=== PATIENT | male | born 1955 | race Caucasian/White ===

== ENCOUNTER 2023-02-14 15:01 | Outpatient (CLI) | payer BC, SELFPAY ==
--- NOTE | 2023-02-14 15:30 | MR_ITS ---
[address] [address] Phone:?[phone] Fax:?[phone] Referring Physician Information: Manuel Kay M.D. [id number] [facility] [address] Phone:?[phone] Fax:?[phone] Patient:Gilda Oseguera D.O.B:?1955 Sex:?Male Phone:?[phone] [facility] MRN:?[id number] Exam Date:?02/14/2023 EXAM: MRI of the LEFT KNEE, without contrast CLINICAL HISTORY: Left knee pain. Suspect lateral meniscal tear. COMPARISONS: Plain radiographs 02/04/2023. TECHNICAL: MR sequences of the left knee: sagittals: PD, PDFS coronals: PD, STIR axials: PD, T2 FS CONTRAST: None SEDATION: None FINDINGS: Bones: No fracture, bone marrow contusion, or other suspicious bone marrow signal abnormality. Patellofemoral joint: Cartilage: Intact. Retinacula: The medial and lateral retinacula are intact. Fat pads: The infrapatellar, quadriceps, and prefemoral fat pads are unremarkable. Knee joint: Effusion: Trace left knee joint effusion. Popliteal cyst: Moderately sized popliteal cyst. Intra-articular bodies: None. Posteromedial corner: The semimembranosus and pes anserine tendons are intact. Medial compartment: Medial meniscus: There is a 3.5 cm in length free edge and inferiorly surfacing oblique flap tear from the body through posterior horn of the medial meniscus with a flap of torn meniscal tissue from the body extruded into the medial gutter. There is ill-defined partial thickness radial tear of the posterior root of the medial meniscus best seen on sagittal series 6 image 14. There is 4 mm of medial meniscal extrusion best seen on coronal series 7 image 19. Cartilage: There is a 1.0 x 1.0 cm area of grade III chondromalacia over the mid weightbearing portion of the medial femoral condyle. Lateral compartment: Lateral meniscus: There is a 2.0 cm in length free edge surfacing horizontal tear from the anterior horn through body of the lateral meniscus best seen on sagittal series 6 image 25 through 23 and coronal series 8 images 15 through 19 and fraying and mucoid degeneration/ill-defined partial tearing of the posterior horn/posterior root junction of the lateral meniscus best seen on sagittal series 5 images 19 and 18. Cartilage: There is a 1.5 x 1.5 cm area of grade II chondromalacia over the central portion of the lateral tibial plateau. Ligaments: Anterior cruciate ligament: Intact. Posterior cruciate ligament: Intact. Medial collateral ligament: Intact. Posterior oblique ligament: Intact. Fibular collateral ligament: Intact. Posterolateral corner: The distal biceps femoris tendon, iliotibial band, popliteus tendon, popliteus muscle, popliteofibular ligament, and arcuate ligament are intact. Extensor mechanism: Patellar tendon: Intact. Quadriceps tendon: Intact. IMPRESSION: 1. 3.5 cm in length free edge and inferiorly surfacing oblique flap tear from the body through posterior horn of the medial meniscus with a flap of torn meniscal tissue from the body extruded into the medial gutter. Ill-defined partial thickness radial tear of the posterior root of the medial meniscus. 4 mm of medial meniscal extrusion. 2. 2.0 cm in length free edge surfacing horizontal tear from the anterior horn through body of the lateral meniscus. Fraying and mucoid degeneration/ill- defined partial tearing of the posterior horn/posterior root junction of the lateral meniscus. 3. 1.0 x 1.0 cm area of grade III chondromalacia over the mid weightbearing portion of the medial femoral condyle. 4. 1.5 x 1.5 cm area of grade II chondromalacia over the central portion of the lateral tibial plateau. 5. Trace left knee joint effusion. Moderately sized popliteal cyst. 6. No ligamentous injury of the left knee. RCB Electronically signed on 02/15/2023 6:41:00 AM by Andreas Fry M.D.
== END 2023-02-14 15:02 | disposition home or self-care (01) ==
LOC: MRI 15:02
PROVIDERS: PCP Family Medicine; Visit Provider Orthopaedic Surgery
DX: M25.562 Pain in left knee (principal); S83.242A Other tear of medial meniscus, current injury, left knee, initial encounter; S83.282A Other tear of lateral meniscus, current injury, left knee, initial encounter; M94.262 Chondromalacia, left knee; M25.462 Effusion, left knee
CPT/HCPCS: 73721

== ENCOUNTER 2023-03-21 06:43 | Day surgery (SDC) | payer BC, SELFPAY ==
[2023-03-21] VITALS (11 sets, daily range): BP systolic 109–144; BP diastolic 69–90; PULSE 55–72; RESP 12–20; TEMP 36.2–36.8; O2SAT 95–99; BMI 27.7
[2023-03-21] MEDS: LACTATED RINGERS 1000 ML 1,000 ML 100 ML IV (07:20)
[2023-03-21] MEDS: SODIUM CHLORIDE 0.9 % (FLUSH) 10 ML SYRINGE IVF (07:25)
--- NOTE | 2023-03-21 09:08 | W.ANESCHARGE ---
Anesthesia Charges Start Date/Time Anesthesia Start Date: 03/21/23 Anesthesia Start Time: 07:31 Stop Date/Time Anesthesia Stop Date: 03/21/23 Anesthesia Stop Time: 09:10
--- NOTE | 2023-03-21 09:09 | W.PM.NB ---
Nerve Block Nerve Block Time Seen by Provider: 09:00 Date Seen: 03/21/23 Type of block requested by surgeon for post-operative analgesia: geniculars Side: left Time out performed: Yes Verification of patient name: Yes Verification of date of : Yes Site marking: not applicable Name of person performing procedure: ancelmo Continuous monitoring Was continuous monitoring of O2 sat, B/P, web site administrator, recorded every 15 minutes?: Yes Procedure Checklist: sterile prep and needles Ultrasound guided. Images saved: No Medications given in 5ml increments after negative aspiration: Ropivicaine %: 0.5 mL: 12 Needle gauge: 25 Decadron (mg): 10 Precedex (mcg): 50 Patient tolerated procedure well: Yes Block Charges Block Charge (with Pro Fee): Genicular Nerve Block Use of Ultrasound Machine for Block: No
--- NOTE | 2023-03-21 09:34 | W.ANESCHARGE ---
Anesthesia Charges Start Date/Time Anesthesia Start Date: 03/21/23 Anesthesia Start Time: 07:31 Stop Date/Time Anesthesia Stop Date: 03/21/23 Anesthesia Stop Time: 09:10
--- NOTE | 2023-03-21 10:11 | PM.ORPRC ---
Procedure Note Date of procedure: 03/21/23 Procedure: PREOPERATIVE DIAGNOSIS: Left knee medial meniscus root tear, medial meniscus tear, lateral meniscus tear POSTOPERATIVE DIAGNOSIS: Left knee medial meniscus root tear, medial meniscus tear, lateral meniscus tear NAME OF OPERATION: Left knee arthroscopic medial meniscus root repair, partial medial meniscectomy, partial lateral meniscectomy SURGEON: Manuel Kay MD FISHING FLOATS ASSEMBLER: CLARA Navarrete ANESTHESIA: Spinal ESTIMATED BLOOD LOSS: 0 mL COMPLICATIONS: None SPECIMENS: None DRAINS: None PREOPERATIVE ANTIBIOTICS: Ancef 2 gram INDICATIONS: The patient is a 67-year-old male with a history of left knee medial pain. MRI scan is consistent with a medial meniscus root tear. Despite appropriate nonoperative management, including activity modification, antiinflammatories, [id number] pain medication, bracing, physical therapy, and injections they continue to have pain and disability. Operative intervention was offered. The risks, benefits and expected outcomes were discussed in detail. These included but were not limited to: Infection, bleeding, injury to blood vessel or nerve, venous thromboembolism. All questions were answered to their satisfaction. PROCEDURE: Spinal anesthesia was administered. The patient was placed supine on the operating room table. The left lower extremity was prepped and draped in the usual sterile fashion. The limb was exsanguinated with the Lenin bandage. The pneumatic tourniquet was inflated to 300 mmHg. A standard anterolateral portal was established. The arthroscope was introduced. The working portal was established anteromedially. Diagnostic arthroscopy was performed with findings as follows: The suprapatellar pouch is normal. Articular surface on the patella is normal. Articular surface on the trochlea is normal. The medial gutter is normal. The medial compartment shows diffuse grade 3 change on the medial femoral condyle, grade 2 change on the medial tibial plateau. The medial meniscus has a complex degenerative tear of the posterior horn. This consists of a small radial tear of the leading edge, with an unstable flap flipped under the posterior horn. The posterior root is severely attenuated, stretched out in degenerative resulting in a situation that functions as a complete root tear. The notch shows the ACL to be intact. The lateral compartment shows normal articular cartilage on the lateral femoral condyle and lateral tibial plateau. The lateral meniscus has a small radial tear of the leading edge of the midbody and some degenerative fraying of posterior horn, just off the posterior tibial attachment. The root is intact. The lateral gutter is normal. The undersurface of the midportion and posterior horn of medial meniscus was debrided with the shaver. The degenerative tissue at the root tear was debrided, converting it into a true root tear. The stump well attached to the tibia was left intact. Unstable chondral flaps on the medial femoral condyle were debrided with the shaver, taken to a stable base. The leading edge of the midbody and posterior horn of the lateral meniscus were debrided with the shaver. The knee scorpion was used to pass a fiber link x 2 in the posterior horn of the medial meniscus. The tibial drill guide was used over the footprint of the root. A longitudinal incision over the anteromedial face of the tibia was placed. The flip cutter was drilled into the footprint. The flip cutter was flipped and back cut 10 mm. It was removed and exchanged for a fiber stick. The fiber stick was brought out the anteromedial portal and was used to shuttle both of the fiber link luggage tag sutures on the posterior horn out the anteromedial tibia. We then tensioned the sutures and fixed them to the tibia with a SwiveLock anchor. This provided an excellent repair of the posterior tibial attachment of the medial meniscus to its anatomic footprint. The power pick was used to microfracture the notch both medially and laterally. Arthroscopic instruments were removed, the portal sites were Steri-Stripped closed, the incision over the tibia was closed with 3-0 Vicryl and 4-0 Monocryl. A dry dressing was applied, the tourniquet was released. Sponge and needle counts were correct x 2. The patient tolerated the procedure well. There were no apparent complications. They were carefully transferred to the hospital bed and taken to the postanesthesia care unit in satisfactory condition. PLAN: The patient will be discharged to home. They will be strict nonweightbearing on the lower extremity for 6 weeks postoperatively. Range of motion will be allowed from 0-90 degrees x 2 weeks then unrestricted range of motion. They will follow up in 2 weeks for a wound check.
[2023-03-21] MEDS: OxyCODONE/APAP 5-325 TABLET 1 TAB PO (10:42)
== END 2023-03-21 10:50 | disposition home or self-care (01) ==
PROVIDERS: PCP Family Medicine; Visit Provider Orthopaedic Surgery
PROC: (CPT 29882; principal; 2023-03-21 08:00)
DX: M23.222 Derangement of posterior horn of medial meniscus due to old tear or injury, left knee (principal); M23.252 Derangement of posterior horn of lateral meniscus due to old tear or injury, left knee; G89.18 Other acute postprocedural pain
CPT/HCPCS: 29880; 29882; 01400; 64454; 97116; 97161; A9270; C1713; J1100; J2250; J2405; J2704; J2795; J3010; J7120

== ENCOUNTER 2023-06-07 10:15 | Outpatient (RCR) | payer BC, SELFPAY ==
--- NOTE | 2023-04-02 16:30 | PT.OPEX ---
PT [place] Outpatient Eval PT [facility] Outpatient Eval Start: 04/02/23 11:56 Freq: Status: Active Protocol: Document 04/02/23 11:56 ADA (Rec: 04/02/23 12:00 ADA [id number]) E-signed By Caroline Lai DPT Physical Therapy Outpatient Evaluation Insurance Information Recert Due Date 07/01/23 Insurance Name [employer] [facility] Medical Diagnosis s/p L knee arthroscopic medial meniscus root repair, PMM, PLM 03/21/23 Treating Diagnosis s/p L knee scope PMM, PLM, medial meniscus root repair with L knee pain/ swelling, impaired L knee ROM, impaired L knee mobility/ strength, currently NWB L LE using crutches Subjective Subjective Patient reports chronic L knee pain leading up to L knee surgery 03/21/23. He denies any trauma, injury, reports gradual wear and tear leading up to surgery. He has been NWB L LE, using crutches for amb. Reports he has been sliding his foot into knee flexion for ROM, working up to 90 degrees. Otherwise has not been doing any exercises. Using tylenol on occasion, but rarely the last few days. No longer needing ice but was icing initially. Pain range 5-8/10 but states he has been feeling ok. Some pain at night with sleeping, rolling over. States he has not been using a knee brace after surgery, no brace issued. Date of Last Physician Visit 03/27/23 Date of Next Physician Visit 05/01/23 Date of Surgery (If applicable) 03/21/23 Occupation currently off work after surgery Precautions Treatment Precautions/Contraindications NWB L LE x 6 wks (s/p L knee medial meniscus root repair ) Weight Bearing Status Non-Weight Bearing Assessment Assessment/Impression Patient is a 67 year old male s/p L knee scope PMM, PLM, medial meniscus root repair with L knee pain/ swelling, impaired L knee ROM, impaired L knee mobility/ strength, currently NWB L LE using crutches. Pain range 5- 8/10. He is NWB L LE using crutches. He is doing well with maintaining NWB with amb. Patient is not wearing a knee brace, states he was not issued a knee brace after surgery. He reports some flare ups of pain at night with sleep, rolling over. He has been sleeping some in the recliner chair, some in the bed. Per PT order, patient ROM limited at 0-90 degrees x 2 weeks and then progress as tolerated. Strict NWB L LE x 6 weeks. Reviewed NWB status with patient. Reviewed current restrictions, precautions after surgery. Patient instructed in QS, passive HS using strap, ext stretching, AP. L knee ROM 0- 0-90 degrees. Patient to use ice, pain meds as needed. Instructed to avoid pushing into pain with his exercises. Plan to progress per post op meniscal root repair rehab protocols as tolerated. Patient would benefit from skilled PT for pain/sx management, improved R knee ROM, improved R knee/LE mobility/strength, progression of WB per protocol, progression of gait per protocol, balance/gait training, and establishment of HEP. Plan of Care Rehabilitation Potential Good Physical Therapy Goals 1. Decrease L knee pain to less than/equal to 3/10 with daily activities and with the progression of PT activities over the next 6-8 weeks. 2. Decrease L knee pain so that the patient is able to sleep through the night on a regular basis within 4-6 weeks. 3. Improve L knee ROM to 0-0- 120 degrees or greater over the next 8-10 weeks for return to normal gait and full daily /work activities per PLF. 4. Improve core/hip/glut/knee /LE strength over the next 10- 12 weeks for improved L knee/LE mobility, progression of WB, return to normal gait without an AD, and return to full daily/work activities per PLF without flare up of L knee pain. 5. Improve balance/ proprioception over the next 10-12 weeks for improved stability with static/dynamic activities, improved mechanics with daily/work activities, decreased stress to knee joint , and return to full daily/ work activities without flare up of L knee pain. 6. Patient will be I with HEP within 12 weeks for progression toward above goals, ongoing self management of pain/sx, ongoing self improvements in core/hip/glut/LE strength, and for return to PLF including daily/work activities without flare up of pain. Coordination/Communication With Referral Source Treatment Plan/Direct Interventions Gait Training,Manual Therapy, Therapeutic Exercises Frequency/Duration 2x/week Patient Will Be Discharged From Therapy Completion of LTG(s),Skills Plateau,Independent w/HEP, Independently Progressing Evaluation Billing Untimed Code Treatment Minutes 25 Complexity Moderate Certification Information Initial Certification Date 04/02/23 Ending Certification Date 07/01/23 Provider Signature Shows Agreement With POC & Medical Necessity Physician Signature & Date Requested Please Sign/Date Here Physician Comment/Change : Physician NPI Number #
== END 2023-10-05 23:59 | disposition home or self-care (01) ==
PROVIDERS: PCP Family Medicine; Visit Provider Physician Assistant
DX: Z98.890 Other specified postprocedural states (principal); Z51.89 Encounter for other specified aftercare
CPT/HCPCS: 97110; 97162